=== PATIENT | female | born 1995 | race Caucasian/White ===

== ENCOUNTER 2022-04-13 12:16 | Emergency (ER) | payer OTHER ==
[2022-04-13 13:02] LABS: RED BLOOD COUNT 4.6 M/UL (4.00-5.10); WHITE BLOOD COUNT 7.3 K/UL (4.5-11.0)
[2022-04-13 13:37] LABS: BUN/CREATININE RATIO 14 (0-10)
[2022-04-13] MEDS ORDERED: OMNICEF 300 MG300 MG PO (16:55)
== END 2022-04-13 17:12 | disposition home or self-care (01) ==
LOC: ER1 12:16
DX: R55 Syncope and collapse (principal); N39.0 Urinary tract infection, site not specified; F17.290 Nicotine dependence, other tobacco product, uncomplicated; Z88.8 Allergy status to other drugs, medicaments and biological substances; Z79.899 Other long term (current) drug therapy
CPT/HCPCS: 70450; 71045; 80053; 81001; 82550; 82553; 84484; 84703; 85025; 87077; 87086; 87186; 93005; 96361; 96374; 99285; J0696